=== PATIENT | male | born 1945 | race Two or more races ===

== ENCOUNTER 2025-03-26 13:16 | Outpatient (AMB) | payer MEDICARE, MEDICAID, SELFPAY ==
--- NOTE | 2025-03-26 13:25 | MHC.OFFVIS ---
Intake Visit Reasons: 8M STROKE Allergies No Known Allergies Allergy (Verified 02/10/25 11:57) Medication List - Last Reconciled 03/26/25 by Ventura Hansen MD allopurinol 300 mg PO BEDTIME amlodipine 2.5 mg PO BEDTIME amoxicillin mg PO aspirin 81 mg PO DAILY cyanocobalamin (vitamin B-12) 100 mcg IM QMONTH isosorbide mononitrate ER 60 mg PO DAILY metformin 1,000 mg PO BID metoprolol tartrate 75 mg PO BID nitroglycerin mg sublingual omeprazole 40 mg PO DAILY oxybutynin chloride ER 10 mg PO DAILY terazosin 20 mg PO DAILY tramadol 50 mg PO TID HPI Comments Details: No stroke like Sx. Ringing in left ear constantly. Hearing is ok. Saw ear doctor. MRI reviewed: small right parietal cortical infarct. On December 21 he had sudden onset of left cheek numbness and trouble with his balance and started using a walker. Balance is slightly better. slight lateral numbness around left knee. Sleeping well. ?No presyncopal or dizzy. Stable MCI with memory problems. History of obesity treated with gastric bypass, he has lost about 80 pounds, history of diabetes of long-standing who initially presented about a year and a half ago with a left ulnar neuropathy from which he has gradually recovered with protection of the elbow. He also has a history of hypertension and coronary artery disease. Previous MRI of the brain which was essentially normal except for minor nonspecific white matter changes bilaterally from chronic small vessel ischemic disease. His EEG was normal. Blood work for vitamin deficiencies thyroid profile CBC and chem profile was all normal. [facility] Medical History (Updated 03/26/25 @ 13:32 by Ventura Hansen MD) MIKO (obstructive sleep apnea) Legally blind OA (osteoarthritis) Iron deficiency anemia Lung mass Acute insomnia Gout History of kidney stones GERD (gastroesophageal reflux disease) Diabetic retinopathy Diabetes mellitus, type II Coronary artery disease BPH (benign prostatic hyperplasia) Angina pectoris Anemia Surgical History (Updated 05/02/22 @ 15:12 by Kalina Ambriz Zahraa) History of surgical procedure on eye proper using laser H/O gastric bypass History of lithotripsy S/P cardiac catheterization Review of Systems Const Details: ?General/Constitutional:? Change in appetitedenies.? Fatiguedenies.? Feverdenies.? Weight gaindenies.? Weight lossdenies. ???Sleep:? Difficulty getting to sleepdenies.? Difficulty maintaining sleepdenies?.? Daytime sleepinessdenies. ???Respiratory:? Shortness of breathdenies.? Chest paindenies. ???Cardiovascular:? Chest pain at restdenies.? Chest pain with exertiondenies.? Dizzinessdenies.? Fluid accumulation in the legsdenies.? Irregular heartbeatdenies.? Palpitationsdenies. ???Gastrointestinal:? Constipationdenies.? Diarrheadenies.? Difficulty swallowingdenies.? Heartburndenies.? Nauseadenies. ???Genitourinary:? Frequent urinationdenies.? Urgencydenies.? Incontinencedenies. ???Musculoskeletal:? Neck paindenies.? Back paindenies.? Joint stiffnessdenies.? Sciaticadenies. ???Neurologic:? Difficulty swallowingdenies.? Balance difficultydenies.? Coordinationnormal.? Difficulty speakingdenies.? Dizzinessdenies.? Faintingdenies.? Gait abnormalitydenies.? Headachedenies.? Loss of strengthdenies.? Loss of use of extremitydenies.? Low back paindenies.? Memory lossdenies.? Seizuresdenies.? Ticsdenies.? Tingling/Numbnessdenies.? Transient loss of visiondenies.? Tremordenies. ???Psychiatric:? Anxietydenies.? Auditory/visual hallucinationsdenies.? Delusionsdenies.? Depressed mooddenies.? Stressorsdenies.? Suicidal thoughtsdenies. Physical Exam Neuro Other: General Examination: GENERAL APPEARANCE:??normal,?in no acute distress.?HEART:??S1, S2 normal,?no murmurs.?LUNGS:??clear anteriorly and posteriorly.?MUSCULOSKELETAL:??normal.?EXTREMITIES:??no edema.?PSYCH:??alert, oriented,?cognitive function intact,?cooperative with exam.? Mini Mental Status Exam: Level of Consciousness:??Alert.?Orientation:??Knows correct year, month, date, day and season,?Knows correct city, county and state. Knows correct location and floor.?Registration:??Able to register 3 objects.?Attention:??Serial 7's performed accurately.?Recall:??Able to recall 3 out of 3 objects.?Language:??Normal spontaneous speech, fluency, repetition,naming, comprehension, reading and writing.?Total Score:??30/30.? Neurological: Abnormal neurological findings:??broad based gait with walker.?Mental Status:??alert and oriented X 3,?Normal attention, orientation, memory and affect.?Cranial Nerves:??Pupils are equal, round and reactive to light. Fundoscopy shows normal disc bilaterally. External occular muscles are intact. Visual godinez are full, no ptosis. Face is symmetrical, no facial weakness or droop. Facial sensations are normal. Tongue protrudes in midline. Palate elevates symmetrically. Shoulder shrugging is normal..?Motor Examination:??Normal muscle tone, bulk and strength,?No atrophy or fasciculations,?No drift of the extended upper extremities,?Deep tendon reflexes are 2+?,?Plantars are flexor?.?Straight Leg Raising:??90 degrees.?Sensory Exam:??Normal light touch, temperature, pinprick, vibration and joint-position sensations?,?Rhomberg sign is absent.?Coordination:??no ataxia,?no titubation,?xddfav-zw-yfnc, zkvq-wjsm-yghv test and rapid alternating movements were normal.?Gait Exam:??walking with cane?.?Cerebellar Signs:??Cwgxhy-df-iivc and ikfg-hj-mcxe is normal,?no dysdiadochokinesia?.?Extrapyramidal System:??No tremor, rigidity with normal facial expressions,?No bradykinesia, no bradyphrenia. Normal arm swing and posture. No propulsion or retropulsion.?Speech:??Normal,?no dysphasia or dysarthria..? Assessment & Plan Assessment & Plan (1) Lumbar disc disease: Code(s): M51.9 - Unspecified thoracic, thoracolumbar and lumbosacral intervertebral disc disorder Category: Medical (2) Arterial ischemic stroke, ICA (internl carotd artry) [facility], [facility]: Code(s): Z86.73 - Personal history of transient ischemic attack (TIA), and cerebral infarction without residual deficits Category: Medical Plan Continue current meds Medications: New tramadol 50 mg PO TID 90 tabs 1RF pain Coding Level of Care Code Est Pt Level 4 (93676) Diagnoses Lumbar disc disease M51.9 Arterial ischemic stroke, ICA (internl carotd artry) [facility], rslv Z86.73
--- OUTSIDE RECORDS SUMMARY | 2025-03-26 18:42 | XMS_ITS | Data Portability ---
Author Organization [place] - [facility], Allergy Address [address] [address] Care Team Providers Care Bike Assembler Name Role Phone BHARATH RUIZ Referring Provider Assessment Encounter Date Assessment Date Assessment LastModified by Organization Details LastModified Time 12/25/2024 12/25/2024 Follow up with referring provider.Feel s he is doing well with his hearing in everyday life. He is a borderline candidate for hearing aid. I recommend yearly audiograms to monitor his hearing. [email or web address] Not available 12/25/2024 11:00:03 Plan of Treatment Reminders Order Date Submit Date Provider Last Modified By Organization Details Last Modified Time Details Appointments None recorded. Lab None recorded. Referral None recorded. Procedures None recorded. Surgeries None recorded. Imaging MRI, brain + internal auditory canal, w/wo contrast - MRI, BRAIN + INTERNAL AUDITORY CANAL, W/WO CONTRAST, unilateral tinnitus 2024 025 [email or web address] [facility] ([facility]), [address] [place], [address], 14:23:23 Medication Orders None recorded. Patient TargetsNo targets recorded. Patient InstructionsNo instructions recorded. Reason for Referral None Reported. Results Created Date Observation Date Name Description Value Unit Range Abnormal Flag Note LastModifiedBy Organization Detail LastModifiedTime 12/26/19 25 audio gram No observ ation record ed. BARCODE Not Available 2024 13:42:07 01/15/20 25 01/11/2025 MRI, brain + brain stem, w/wo contr ast [facility] Access ion Number : [id number] Patien t Name: Ghalai ni, Rafik Medica l Record Number : [id number] Date of : 1945 Date of Exam: 2024 Referr ing Physic jordana: Vanda erazo, [facility] [place] [address] [facility] [address] [place] [address] Exam: MR Brain (C-/C+ ) CPT 69428 Room Descri ption: [place] [facility] 3T MR Brain (C-/C+ ) CPT 19770 INDICA TION / CLINIC AL QUESTI ON: Reason For Exam: Tinnit us, left ear, , MRI, BRAIN + BANK SECRECY ACT OFFICER AL AUDITO RY CANAL, W/WO CONTRA ST, unilat eral tinnit us\E E\[facility] (MRI, BRAIN + BANK SECRECY ACT OFFICER AL AUDITO RY CANAL, W/WO CONTRA ST), Clinic al Indica tion: Asymme tric sensor ineura l hearin g loss Reason For Exam: Tinnit us, left ear, , MRI, BRAIN + BANK SECRECY ACT OFFICER AL AUDITO RY CANAL, W/WO CONTRA ST, unilat eral tinnit us\E E\[facility] (MRI, BRAIN + BANK SECRECY ACT OFFICER AL AUDITO RY CANAL, W/WO CONTRA ST), Clinic al Indica tion: Asymme tric sensor ineura l hearin g loss TECHNI QUE: MRI of the brain with attent ion to the journalism intern al audito ry canals was perfor med with and withou t contra st utiliz ing sagitt al T1, axial T2, 3D axial T2 CUBE, axial and kenny l T1, and post-c ontras t axial and kenyn l T1-stanford ghted sequen jamar. 6 mL Elucir em intrav enous contra st was admini stered . COMPAR TWILA: Brain MRI 023. FINDIN GS: IAC: There is no mass or abnorm al enhanc ement in the journalism intern al audito ry canals or cerebe llopon shannon angles . Course and calibe r of the 7th and 8th crania l nerves is normal bilate rally. Fluid signal is preser cherri in the inner ear struct ures bilate rally. Brains tem demons trates normal signal . BRAIN and EXTRA- AXIAL SPACES : The ventri cles and sulci are promin ent reflec ting volume loss. Chroni c lacuna r infarc ts in the thalam i. There are scatte red nonspe cific T2 or hyperi ntensi ties in the white matter which most likely reflec t chroni c small vessel diseas e. There are subtle areas of chroni c enceph alomal acia in the right fronta l and right periat rial white matter which extend into the insula . Subtle chroni c lacuna r infarc ts in the cerebe llar hemisp heres. EXTRAC RANIAL SOFT TISSUE S: Visual ized portio ns of the extrac ranial soft tissue s are unrema rkable . Bilate ral lens extrac tions are noted. There is scatte red parana kimberley sinus mucosa l thicke charlene and there is hetero geneou s materi al fillin g the right maxill stanley sinus which likely reflec ts protei naceou s debris . BONES: Visual ized marrow signal is preser cherri. IMPRES ALEX: No retroc ochlea r abnorm ality to explai n the patien t?s sympto ms. Areas of enceph alomal acia in the right perive ntricu lar white matter extend ing to the insula compat ible with chroni c infarc t. Chroni c lacuna r infarc ts in the cerebe llum and thalam i. Nonspe cific white matter signal change s most likely reflec t chroni c small vessel diseas e. Electr onical ly Signed By: Ramila lim [facility] ([facility]) [address] [place], [address], 01/21/2025 14:31:20 Result Notes Documentation Provider Name and Address Organization Details Recorded Time Mri, Brain + Brain Stem, W/wo Contrast : [facility] Accession Number: [id number] Patient Name: Melissa Tsang Date of : 1945 Date of Exam: 01-11-2025 Referring Physician: Hoa [facility] [address] [address] Exam: MR Brain (C-/C+) CPT 11534 Room Description: [facility] 3T MR Brain (C-/C+) CPT 79076 INDICATION / CLINICAL QUESTION: Reason For Exam: Tinnitus, left ear, , MRI, BRAIN + INTERNAL AUDITORY CANAL, W/WO CONTRAST, unilateral tinnitus\E E\[facility] (MRI, BRAIN + INTERNAL AUDITORY CANAL, W/WO CONTRAST), Clinical Indication: Asymmetric sensorineural hearing loss Reason For Exam: Tinnitus, left ear, , MRI, BRAIN + INTERNAL AUDITORY CANAL, W/WO CONTRAST, unilateral tinnitus\E E\[facility] (MRI, BRAIN + INTERNAL AUDITORY CANAL, W/WO CONTRAST), Clinical Indication: Asymmetric sensorineural hearing loss TECHNIQUE: MRI of the brain with attention to the internal auditory canals was performed with and without contrast utilizing sagittal T1, axial T2, 3D axial T2 CUBE, axial and coronal T1, and post-contrast axial and coronal T1-weighted sequences. 6 mL Elucirem intravenous contrast was administered. COMPARISON: Brain MRI 01/01/2023. FINDINGS: IAC: There is no mass or abnormal enhancement in the internal auditory canals or cerebellopontine angles. Course and caliber of the 7th and 8th cranial nerves is normal bilaterally. Fluid signal is preserved in the inner ear structures bilaterally. Brainstem demonstrates normal signal. BRAIN and EXTRA-AXIAL SPACES: The ventricles and sulci are prominent reflecting volume loss. Chronic lacunar infarcts in the thalami. There are scattered nonspecific T2 or hyperintensities in the white matter which most likely reflect chronic small vessel disease. There are subtle areas of chronic encephalomalacia in the right frontal and right periatrial white matter which extend into the insula. Subtle chronic lacunar infarcts in the cerebellar hemispheres. EXTRACRANIAL SOFT TISSUES: Visualized portions of the extracranial soft tissues are unremarkable. Bilateral lens extractions are noted. There is scattered paranasal sinus mucosal thickening and there is heterogeneous material filling the right maxillary sinus which likely reflects proteinaceous debris. BONES: Visualized marrow signal is preserved. IMPRESSION: No retrocochlear abnormality to explain the patient?s symptoms. Areas of encephalomalacia in the right periventricular white matter extending to the insula compatible with chronic infarct. Chronic lacunar infarcts in the cerebellum and thalami. Nonspecific white matter signal changes most likely reflect chronic small vessel disease. Electronically Signed By: Ramila crane [place] - [facility] 01/21/2025 14:31:20 Problems Name Problem SNOMED Code Status Onset Date Resolution Date Notes Provider Name and Address Organization Details Recorded Time Sensorineur al hearing loss of bilateral ears 351442196 Active 2024 HOA Banuelos MD 100 [facility] [address], [place], [address], [facility] 11:57:58 Bilateral tinnitus 9586030968681 Active 2024 HOA Banuelos MD [address] [address], [place], [address], [facility] - [facility] 11:57:00 Tinnitus of left ear 3255365365266 Active 2024 HOA Banuelos MD [address] [address], [place], [address], [facility] 11:58:36 Problem Notes None recorded. Procedures Surgical History Date Name Laterality Status Provider Name and Address Organization Details Recorded Time 12/25/2024 Comp Audio with Tymps - 36923 & 27222 completed YANN ELIZONDO 100 [facility] 100, [place], [address], [facility] 12/25/2024 10:45:24 Imaging Results None recorded. Procedure Notes None recorded. Medical Equipment None Reported. Medications Name Sig Start Date Stop Date Status Note LastModified by Organization Details LastModified Time amoxicillin 500 mg capsule TAKE 1 CAPSULE BY MOUTH 3 TIMES A DAY FOR 10 DAYS active Not Available Not Available No t Available metformin 500 mg tablet TAKE 2 TABLETS BY MOUTH TWICE A DAY active Not Available Not Available No t Available trazodone 50 mg tablet 1 TABLET BY MOUTH DAILY AT BEDTIME NEEDED FOR INSOMNIA active Not Available Not Available No t Available oxybutynin chloride ER 10 mg tablet,extend ed release 24 hr TAKE 1 TABLET BY MOUTH EVERY DAY active Not Available Not Available No t Available isosorbide mononitrate ER 30 mg tablet,extend ed release 24 hr TAKE 2 TABLETS BY MOUTH EVERY DAY active Not Available Not Available No t Available amlodipine 2.5 mg tablet TAKE 1 TABLET BY MOUTH EVERYDAY AT BEDTIME active Not Available Not Available N ot Available tramadol 50 mg tablet TAKE 1 TABLET BY MOUTH TWICE A DAY FOR 30 DAYS active Not Available Not Available No t Available amoxicillin 875 mg tablet TAKE 1 TABLET BY MOUTH TWICE A DAY FOR 7 DAYS active Not Available Not Available No t Available ferrous sulfate 325 mg (65 mg iron) tablet TAKE 1 TABLET BY MOUTH 3 TIMES A DAY,MAY TAKE WITH FOOD TO MINIMIZE ABDOMINAL DISCOMFORT . active Not Available Not Available No t Available metoprolol tartrate 50 mg tablet TAKE 1.5 TABLET BY MOUTH 2 TIMES A DAY active Not Available Not Available No t Available nitroglycerin 0.4 mg sublingual tablet TAKE 1 TAB UNDER TONGUE EVERY 5 MIN NEED CHEST PAIN. MAX 3 TAB/15 MIN. CALL 911 IF PERSISTS active Not Available Not Available No t Available gabapentin 300 mg capsule TAKE 2 CAPSULE BY MOUTH 3 TIMES A DAY active Not Available Not Available No t Available omeprazole 20 mg capsule,delay ed release TAKE 1 CAPSULE BY MOUTH EVERY DAY active Not Available Not Available No t Available allopurinol 300 mg tablet TAKE 1 TABLET BY MOUTH EVERYDAY AT BEDTIME active Not Available Not Available N ot Available terazosin 10 mg capsule TAKE 1 CAPSULE BY MOUTH EVERYDAY AT BEDTIME active Not Available Not Available N ot Available oxycodone 5 mg tablet TAKE 1 TABLET BY MOUTH EVERY 6 HOURS NEEDED FOR SEVERE PAIN active Not Available Not Available No t Available rosuvastatin 20 mg tablet TAKE 1 TABLET BY MOUTH EVERY DAY active Not Available Not Available No t Available ranolazine ER 500 mg tablet,extend ed release,12 hr TAKE 1 TABLET BY MOUTH TWICE A DAY active Not Available Not Available No t Available FreeStyle Lite Meter kit USE TO CHECK GLUCOSE ONCE DAILY active Not Available Not Available N ot Available FreeStyle Lite Strips USE TO TEST GLUCOSE ONCE DAILY FOR DX DIABETES MELLITUS TYPE 2 (E11.9) active Not Available Not Available No t Available Vitals Date Recorded Body height Body mass index (BMI) Body weight Provider Name and Address Organization Details Last Updated DateTime 12/26/2024 152.4 cm 24.2 kg/m2 11180.45 g Daphne Montelongo [place] - [facility] 12/26/2024 11:52:46 Social History None recorded. Functional Status None recorded. Mental Status None recorded. Family History Nothing Reported. Medical History No medical history recorded. Past Encounters Encounter ID Performer Location Encounter Start Date Encounter Closed Date Diagnosis/Indication Diagnosis SNOMED-CT Code Diagnosis ICD10 Code Diagnosis IMO Codes Diagnosis Note [id number] YANN ELIZONDO [facility] [address] [place] [address] 12/25/2024 10:45:14 12/26/2024 23:31:54 Sensorineural hearing loss of bilateral ears 354248529 H90.3 [id number] Audiologic al evaluation results: Normal sloping to moderately -severe sensorineu ral hearing loss with excellent word recognitio n, bilaterall y. Tympanomet ry:Right Ear:Type AsLeft Ear:Type B [id number] HOA ANDERSON MD [facility] 100 [place] [address] 12/26/2024 11:34:10 12/26/2024 12:03:50 Sensorineural hearing loss of bilateral ears [id number] H90.3 [id number] I personally reviewed his audiogram. He is not yet a candidate for hearing aids. I recommend retest in 1-2 years. Tinnitus of left ear 828 [id number] 106 H93.12 669593 Ear exam was normal. Audiogram was reviewed. We discussed the associatio n between sensorineu ral hearing loss and tinnitus. We discussed masking for tinnitus. Given the tinnitus is unilateral I will obtain an MRI IAC to exclude retrocochl ear pathology. Health Concerns Section Related Observation LastModified by Organization Detai ls LastModified Time None Recorded Concern Status LastModified by Organization Details LastModified Time None Recorded Advance Directives Directive None Recorded Payers Insurance Date Sequence Insurance Name Policy Number Policy Silveiro Covered Member ID Silverio Member ID Guarantor Name 12/26/2024 1 MEDIC[place] B-[place]: [employer] Melissa Tsang [id number] Melissa Tsang 12/26/2024 2 [place] [facility] Melissa Tsang [id number] Melissa Tsang Notes Date Note Type Note Provider Name and Address Organization Details Recorded Time 12/25/2024 text/html Audiological Evaluation HPIReported by PatientHearing LossFor hearing loss perceived, patient reportsgradual onset.TinnitusFor tinnitus reported, patient reportsboth ears. For sounds like, patient reportshigh pitched. [facility] [employer], [facility] [address], [address], [facility] - [facility] 12/25/2024 11:00:34 12/26/2024 text/html ROS as noted in the HPI He presents with left tinnitus. It fluctuates in intensity. Some days it is louder than other days. 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 He denies much difficulty hearing. No new medications. No hx of head trauma. HOA ANDERSON MD [address] [place] [address], [address], [facility] - [facility] 12/26/2024 12:05:00
== END 2025-03-26 13:50 | disposition home or self-care (01) ==
PROVIDERS: PCP Nurse Practitioner Family; Referring Provider Nurse Practitioner Family; Visit Provider Psychiatry & Neurology Neurology
DX: M51.9 Unspecified thoracic, thoracolumbar and lumbosacral intervertebral disc disorder (principal); Z86.73 Personal history of transient ischemic attack (TIA), and cerebral infarction without residual deficits
CPT/HCPCS: 99214

== ENCOUNTER → 2025-03-26 13:16 | Outpatient (BNVA) | payer MEDICARE, MEDICAID, SELFPAY | PROVIDERS: PCP Nurse Practitioner Family; Referring Provider Nurse Practitioner Family; Visit Provider Psychiatry & Neurology Neurology | DX: Z09 Encounter for follow-up examination after completed treatment for conditions other than malignant neoplasm (principal); Z86.73 Personal history of transient ischemic attack (TIA), and cerebral infarction without residual deficits; M51.9 Unspecified thoracic, thoracolumbar and lumbosacral intervertebral disc disorder | CPT/HCPCS: 99212 ==